=== PATIENT | female | born 1975 | race Caucasian/White ===

== ENCOUNTER → 2016-12-19 19:00 | Emergency (ER) | payer SELFPAY ==
[~2016-12-19 19:00] MED LIST: AMOXICILLIN500 M1 PO; ANUSOL-HC CREAM30 G1 EXT; ANUSOL-HC SUPP25 M1 PR; BACTRIM DS TABL1 TA1 PO; BENADRYL PO; BIRTH CONTROL PILL; CIPRO PO; HYDROCODON-ACE1 EAC7 PO; PHENERGAN25 M1 PO; PREDNISONE PO; PYRIDIUM PO
== END | disposition left against medical advice (07) ==
LOC: CED 19:00
DX: Z53.21 Procedure and treatment not carried out due to patient leaving prior to being seen by health care provider (principal)